=== PATIENT | male | born 1960 | race Caucasian/White ===

== ENCOUNTER 2020-12-25 13:55 | Emergency (ER) | payer OTHER ==
[~2020-12-25] VITALS: Ht 182.9 cm; Wt 79.4 kg
[2020-12-25] MEDS ORDERED: DIGOXIN250 MCG PO (14:05)
[2020-12-25] MEDS ORDERED: ELIQUIS5 MG PO (14:05)
[2020-12-25] MEDS ORDERED: METOPROLOL SUC200 MG PO (18:50)
[2020-12-25] MEDS ORDERED: LEVOFLOXACIN500 MG PO (18:50)
[2020-12-25] MEDS ORDERED: HYDROCHLOROTHIA25 MG PO (18:50)
[2020-12-25] MEDS ORDERED: LOSARTAN POTASS25 MG PO (18:50)
--- NOTE | 2020-12-26 13:34 | EKG ---
[facility] [address] [facility] [place] [address] Signed Atrial fibrillation with rapid ventricular response Low voltage QRS Cannot rule out Anteroseptal infarct , age undetermined Abnormal ECG No previous ECGs available Confirmed by JANNET RUSH MD ([id number]) on 12/26/2020 1:34:16 PM Electronically Signed By: JANNET RUSH MD 12/26/20 1334 PATIENT NAME: APOLINAR CALLOWAY Electrocardiogram DATE OF : 58 PHYSICIAN: JANNET RUSH MD REPORT #: [id number] REPORT IS CONFIDENTIAL AND NOT TO BE RELEASED WITHOUT AUTHORIZATION
== END 2020-12-25 19:08 | disposition home or self-care (01) ==
LOC: ED 13:55
DX: I48.91 Unspecified atrial fibrillation (principal); J18.9 Pneumonia, unspecified organism; Z20.822 Contact with and (suspected) exposure to COVID-19; I10 Essential (primary) hypertension; F17.200 Nicotine dependence, unspecified, uncomplicated; Z88.8 Allergy status to other drugs, medicaments and biological substances; Z79.899 Other long term (current) drug therapy
CPT/HCPCS: 71045; 80053; 80162; 83605; 83735; 83880; 84484; 85025; 87040; 93005; 93010; 96374; 99285-25; C9803; U0003